=== PATIENT | male | born 1970 | race Caucasian/White ===

== ENCOUNTER 2023-06-23 16:47 | Inpatient (IN) | payer BC, MEDICAID ==
[~2023-06-23] VITALS: Ht 188 cm; Wt 100.8 kg
[~2023-06-23 16:47] MED LIST: AMOX-580 PO; LACT1CAP65 PO; METR-159 PO
[2023-06-23] MEDS ORDERED: piperacillin/tazo 3.375gm/50ml 50 ML IV ONE (17:05)
[2023-06-23] MEDS ORDERED: normal saline 1000ML IV soln IV ONE (17:05)
[2023-06-23] MEDS ORDERED: acetaminophen 325mg tablet PO STA (17:05)
[2023-06-23] MEDS ORDERED: iohexol 300mg/ml 100ml inj. ONE (17:15)
[2023-06-23 18:18] LABS: ALANINE AMINOTRANSFERASE 34 U/L (12-78); ALBUMIN 3.8 G/DL (3.4-5.0); ALBUMIN/GLOBULIN RATIO 0.9 (1.1-1.5); ALKALINE PHOSPHATASE 97 IU/L (46-116); ANION GAP 6 (8-16); ASPARTATE AMINO TRANSFERASE 18 U/L (10-37); BILIRUBIN,TOTAL 0.4 MG/DL (0.1-1.0); BLOOD UREA NITROGEN 14 MG/DL (7-18); BUN/CREATININE RATIO 11.7 (10.0-20.0); CALCIUM 9.4 MG/DL (8.5-10.1); CHLORIDE 101 MMOL/L (99-107); GLUCOSE 92 MG/DL (70-104); POTASSIUM 4.3 MMOL/L (3.5-5.1); SODIUM 137 MMOL/L (135-145); TOTAL CARBON DIOXIDE 29.8 MMOL/L (24-32); TOTAL PROTEIN 7.9 G/DL (6.4-8.2); eCRCL 84 ML/MIN; eGFR 64 ML/MIN
[2023-06-23 19:02] LABS: BASOPHILS # (AUTO) 0.1 X10'3 (0-0.2); BASOPHILS % (AUTO) 1.4 % (0-1); EOSINOPHILS # (AUTO) 0.4 X10'3 (0-0.9); EOSINOPHILS % (AUTO) 4.7 % (0-6); HEMATOCRIT 45.1 % (42.0-52.0); LYMPHOCYTES # (AUTO) 2.1 X10'3 (1.1-4.8); LYMPHOCYTES % (AUTO) 23.2 % (21-51); MEAN CORPUSCULAR HEMOGLOBIN 30.4 PG (27.0-31.0); MEAN CORPUSCULAR HGB CONC 35.5 g/dL (33.0-36.5); MEAN CORPUSCULAR VOLUME 85.6 FL (78-98); MEAN PLATELET VOLUME 7.5 FL (7.4-10.4); MONOCYTES # (AUTO) 0.7 X10'3 (0-0.9); MONOCYTES % (AUTO) 7.5 % (2-12); NEUTROPHILS # (AUTO) 5.7 X10'3 (1.8-7.7); NEUTROPHILS % (AUTO) 63.2 % (42-75); PLATELET COUNT 311 X10'3 (140-440); RED BLOOD COUNT 5.27 X10'6 (4.70-6.10); RED CELL DISTRIBUTION WIDTH 12.9 % (11.5-14.5)
[2023-06-23] MEDS ORDERED: ondansetron/PF 4mg/2ml inj IV ONE (19:50)
[2023-06-23] MEDS ORDERED: morphine 2 MG/ML inj. syringe IV ONE (22:35)
[2023-06-24] MEDS ORDERED: morphine 2 MG/ML inj. syringe IV PRN ×2 (00:25)
[2023-06-24] MEDS ORDERED: ondansetron 4mg rapidly disintigrating tab PO PRN (00:25)
[2023-06-24] MEDS ORDERED: ondansetron/PF 4mg/2ml inj IV PRN (00:25)
[2023-06-24] MEDS ORDERED: acetaminophen 650mg rectal suppository RC PRN (00:25)
[2023-06-24] MEDS ORDERED: mag hydrox/Alum hydrox/simeth 30ml oral suspension PO PRN (00:25)
[2023-06-24] MEDS ORDERED: diphenhydrAMINE 25mg capsule PO PRN (00:25)
[2023-06-24] MEDS ORDERED: magnesium hydroxide 30ml (MOM) UD suspension PO PRN (00:25)
[2023-06-24] MEDS ORDERED: HYDROcodone/acetaminophen 5mg/325mg tablet PO PRN (00:25)
[2023-06-24] MEDS ORDERED: acetaminophen 325mg tablet PO PRN ×2 (00:25)
[2023-06-24] MEDS ORDERED: diphenhydrAMINE 50 mg/ml inj IV PRN (00:25)
[2023-06-24] MEDS ORDERED: bisacodyl 10mg suppository rectal RC PRN (00:25)
[2023-06-24] MEDS: dextrose 5%-1/2 normal saline 1,000 ML IV SCH ×3 (01:05→19:00)
[2023-06-24 01:10] LABS: APTT 31 SECONDS (22-32); PROTHROMBIN TIME 10.3 SECONDS (9.0-12.0)
[2023-06-24 01:16] LABS: CREATINE KINASE 36 U/L (39-308); LIPASE 323 U/L (16-77); MAGNESIUM 1.8 MG/DL (1.5-2.4); PHOSPHORUS 3.7 MG/DL (2.3-4.5); PRO BRAIN NATRIURETIC PEPTIDE < 30 PG/ML (0-125); THYROID STIMULATING HORMONE 4.72 ulU/ml (0.34-4.50)
[2023-06-24] MEDS ORDERED: nitroGLYCERIN-Tridil 50MG/D5W 250 ML IV SCH (03:35)
[2023-06-24] MEDS ORDERED: HYDROcodone/acetaminophen 10/325mg tab PO ONE (05:55)
[2023-06-24] MEDS: piperacillin/tazo 4.5gm/100ml 100 ML IV SCH ×3 (06:48→22:43)
[2023-06-24] MEDS: docusate sod 100mg capsule PO SCH ×2 (07:59→20:00)
[2023-06-24] MEDS: pantoprazole 40MG/NS 100ML BAG 100 ML IV SCH (08:01)
[2023-06-24] MEDS: heparin, porcine 5000 units/ml vial SQ SCH ×2 (08:10→08:16)
[2023-06-24] MEDS ORDERED: potassium Cl 40MEQ/1/2NS 520ml 520 ML IV PRN (08:30)
[2023-06-24] MEDS ORDERED: magnesium Cl slow-release 64mg tablet PO PRN (08:30)
[2023-06-24] MEDS ORDERED: magnesium 4gm in 100ml NS 100 ML IV PRN (08:30)
[2023-06-24] MEDS ORDERED: magnesium 2GM in 50ml NS 50 ML IV PRN (08:30)
[2023-06-24] MEDS ORDERED: potassium Cl 20 mEq SR tablet PO PRN ×2 (08:30)
[2023-06-24 18:30] VITALS: BP 135/70; RESP 16; TEMP 97.8; O2SAT 98
[2023-06-24 20:00] VITALS: RESP 18; O2SAT 97
[2023-06-24] MEDS: K and/or MAG REPLACEMENT MC SCH (20:00)
[2023-06-24] MEDS ORDERED: temazepam 15mg capsule PO PRN (21:00)
[2023-06-24 22:00] VITALS: BP 127/79; PULSE 61; RESP 16; TEMP 97.4; O2SAT 96
[2023-06-25] MEDS: dextrose 5%-1/2 normal saline 1,000 ML IV SCH ×2 (03:48→08:25)
[2023-06-25 06:00] VITALS: BP 118/72; PULSE 48; RESP 16; TEMP 98.7; O2SAT 96
[2023-06-25] MEDS: piperacillin/tazo 4.5gm/100ml 100 ML IV SCH ×2 (06:02→13:02)
[2023-06-25] MEDS: docusate sod 100mg capsule PO SCH (07:48)
[2023-06-25] MEDS: pantoprazole 40MG/NS 100ML BAG 100 ML IV SCH (07:48)
[2023-06-25] MEDS: HYDROcodone/acetaminophen 10/325mg tab PO PRN ×2 (07:55→13:39)
[2023-06-25] MEDS: heparin, porcine 5000 units/ml vial SQ SCH (08:00)
[2023-06-25] MEDS: K and/or MAG REPLACEMENT MC SCH (08:00)
[2023-06-25 09:19] LABS: BASOPHILS # (AUTO) 0.1 X10'3 (0-0.2); BASOPHILS % (AUTO) 0.6 % (0-1); EOSINOPHILS # (AUTO) 0.4 X10'3 (0-0.9); EOSINOPHILS % (AUTO) 4.6 % (0-6); HEMATOCRIT 41.5 % (42.0-52.0); HEMOGLOBIN 14.6 g/dl (14.0-17.9); LYMPHOCYTES # (AUTO) 1.8 X10'3 (1.1-4.8); LYMPHOCYTES % (AUTO) 20.8 % (21-51); MEAN CORPUSCULAR HGB CONC 35.3 g/dL (33.0-36.5); MEAN CORPUSCULAR VOLUME 85.2 FL (78-98); MONOCYTES # (AUTO) 0.5 X10'3 (0-0.9); MONOCYTES % (AUTO) 6.1 % (2-12); NEUTROPHILS % (AUTO) 67.9 % (42-75); PLATELET COUNT 298 X10'3 (140-440); RED BLOOD COUNT 4.87 X10'6 (4.70-6.10); RED CELL DISTRIBUTION WIDTH 12.7 % (11.5-14.5); WHITE BLOOD COUNT 8.9 X10'3 (4.5-11.0)
[2023-06-25 09:36] LABS: ALBUMIN 3.1 G/DL (3.4-5.0); AMYLASE 78 U/L (25-115); ANION GAP 7 (8-16); BLOOD UREA NITROGEN 8 MG/DL (7-18); BUN/CREATININE RATIO 6.7 (10.0-20.0); CALCIUM 8.5 MG/DL (8.5-10.1); CHLORIDE 104 MMOL/L (99-107); CHOL/HDL RATIO 2.3 (0.00-4.99); CHOLESTEROL 104 MG/DL (0-200); CREATININE 1.19 MG/DL (0.60-1.10); GLUCOSE 120 MG/DL (70-104); HDL CHOLESTEROL 45 MG/DL (35-60); LDL CHOLESTEROL 49 MG/DL (50-100); LIPASE 85 U/L (16-77); POTASSIUM 3.5 MMOL/L (3.5-5.1); SODIUM 138 MMOL/L (135-145); TOTAL CARBON DIOXIDE 26.8 MMOL/L (24-32); TRIGLYCERIDES 41 MG/DL (20-135); eCRCL 84 ML/MIN; eGFR 64 ML/MIN
[2023-06-25 10:00] VITALS: BP 124/77; PULSE 68; RESP 14; TEMP 98.2; O2SAT 97
[2023-06-25] MEDS ORDERED: METR-159 PO (13:00)
[2023-06-25] MEDS ORDERED: LEVO-65 PO ×2 (13:00)
[2023-06-25] MEDS ORDERED: LEVO750T68 PO (13:22)
[2023-06-26] MEDS ORDERED: pantoprazole 40mg Tablet.DR PO SCH (07:30)
== END 2023-06-25 15:55 | disposition home or self-care (01) | DRG 392 ==
LOC: ER 16:48 → ED HOLD 06-24 00:31 → UNDODISIN 06-24 16:55 → ORTHO 4S 06-24 17:52
PROVIDERS: ADMIT Family Medicine; ATTEND Family Medicine
PROC: BW211ZZ Computerized Tomography (CT Scan) of Abdomen and Pelvis using Low Osmolar Contrast (ICD-10-PCS; principal; 2023-06-23)
DX: K57.20 Diverticulitis of large intestine with perforation and abscess without bleeding (principal); N17.9 Acute kidney failure, unspecified; I10 Essential (primary) hypertension; Z82.49 Family history of ischemic heart disease and other diseases of the circulatory system; K59.09 Other constipation; Z83.3 Family history of diabetes mellitus; Z90.5 Acquired absence of kidney
CPT/HCPCS: 36415; 74177; 80048; 80053; 80061; 82150; 82550; 83605; 83690; 83735; 83880; 84100; 84145; 84439; 84443; 85025; 85610; 85730; 87040; 87081; 93005; 96374; 96375; 99285; C9113; G0378; J1644; J2270; J2405; J2543; J3490; J7030; Q9967